=== PATIENT | female | born 1950 | race Caucasian/White ===

== ENCOUNTER → 2020-01-02 | Outpatient (CLI) | payer MEDICARE ==
[~2020-01-02] MED LIST: IOHEXOL 240 MG/ML 50ML VIAL. PO ONE; IOHEXOL 300 MG/ML 100ML VIAL. IV ONE; LEVO25TA55 PO; NIFE30TA2 PO
--- NOTE | 2020-01-02 13:12 | KCIC ---
Examination: CT ABD PELV W/ORAL IV CONTRAST History: Reason: BILATERAL GROIN PAIN, UMBILICAL PAIN, EVALUATE FOR HERNIAS / Spl. Instructions: 67mL Omni 300 / History: Comparison/Correlation: None Findings: Axial images of the abdomen and pelvis were obtained following IV and oral contrast. Sagittal and coronal reformatted images were provided. Visualized lung bases are clear. No hiatal hernia. Upper abdominal ventral hernia at epigastric level is present measuring 1 cm longitudinal by 0.8 cm transverse with small amount of abdominal fat herniation. Liver, spleen, pancreas, and adrenal glands are normal. Right kidney is normal. Left extrarenal pelvis is present. Gallbladder fossa is unremarkable. Surgical clips are present about the cecum. Appendix is not delineated. No extraluminal gas. Moderate quantity of stool in the colon noted. No bowel obstruction. Circumferential wall thickening of the distal rectum is present but may represent contraction or spasm. Urinary bladder is unremarkable. Uterus is unremarkable. Moderate L4-5 disc space narrowing is present with concentric disc bulge. Mild L5-S1 disc space narrowing also is present with mild concentric disc bulge. There are no inguinal hernias. No enlarged abdominal or pelvic lymph nodes. No ascites or pelvic free fluid. Abdominal aortogram appears unremarkable. Impression: Small ventral hernia of the abdominal wall at the epigastric level. Small amount of herniated abdominal fat. Circumferential wall thickening of the distal rectum which may represent contraction or spasm. Clinical evaluation is recommended. PQRS Compliance Statement: One or more of the following individualized dose reduction techniques were utilized for this examination: 1. Automated exposure control 2. Adjustment of the mA and/or kV according to patient size 3. Use of iterative reconstruction technique Electronically signed by: Lane Triana MD (01/02/2020 1:09 PM) [facility]
== END ==
LOC: KCIC CT 10:21
PROVIDERS: ATTEND Surgery
DX: K43.9 Ventral hernia without obstruction or gangrene (principal)
CPT/HCPCS: 74177; 82565; Q9966; Q9967

== ENCOUNTER → 2020-01-25 | Outpatient (CLI) | payer MEDICARE ==
[~2020-01-25] MED LIST changes: +ASCO500C PO; +CALCIUM MAG; +CHOL2400 MC; +CYAN50008 SL; +HYDR-3164 PO; -IOHEXOL 240 MG/ML 50ML VIAL. PO ONE; -IOHEXOL 300 MG/ML 100ML VIAL. IV ONE; +L.AC1CAP6 PO; +LEVO50TA5 PO; +METH500T5 PO; +OMEG1CAP27 PO; +TIMO5SOL10 EACHEYE; +ZINC; +[UNRECOGNIZED DRUG - OTHER]; +[UNRECOGNIZED DRUG - REMARK]; +potassium OTC; +tumeric
== END | disposition home or self-care (01) ==
LOC: LAB 13:47
PROVIDERS: ATTEND Surgery
DX: Z01.818 Encounter for other preprocedural examination (principal); Z11.59 Encounter for screening for other viral diseases; K43.9 Ventral hernia without obstruction or gangrene; Z88.0 Allergy status to penicillin
CPT/HCPCS: U0003-CS

== ENCOUNTER 2020-01-29 05:52 | Day surgery (SDC) | payer MEDICARE ==
[~2020-01-29] VITALS: Ht 158.8 cm; Wt 55.0 kg
[~2020-01-29 05:52] MED LIST changes: -HYDR-3164 PO
[2020-01-29] MEDS ORDERED: PROCHLORPERAZINE 10 MG/2 ML VIAL. IV PRN (07:00)
[2020-01-29] MEDS ORDERED: ONDANSETRON PF 4 MG/2 ML VIAL. IV PRN (07:00)
[2020-01-29] MEDS ORDERED: LIDOCAINE 1% PF 2 ML VIAL. ID PRN (07:00)
[2020-01-29] MEDS ORDERED: fentaNYL PF VIAL 100 MCG/2 ML VIAL IV PRN ×2 (07:00)
[2020-01-29] MEDS ORDERED: HYDROmorphone 2 MG/ML VIAL IV PRN (07:00)
[2020-01-29] MEDS ORDERED: MORPHINE SULFATE 2 MG/ML VIAL. IV PRN (07:00)
[2020-01-29] MEDS ORDERED: IV RINGERS,LACTATED 1000ML 1,000 ML IV SCH (07:00)
[2020-01-29] MEDS ORDERED: PROPOFOL 10 MG/ML (20ML) VIAL. IV ONE (07:11)
[2020-01-29] MEDS ORDERED: LIDOCAINE 2% PF 5 ML VIAL. ONE (07:11)
[2020-01-29] MEDS ORDERED: fentaNYL PF VIAL 100 MCG/2 ML VIAL ONE (07:11)
[2020-01-29] MEDS ORDERED: ROCURONIUM 50 MG/5 ML VIAL. ONE (07:12)
[2020-01-29] MEDS ORDERED: SUCCINYLCHOLINE 200 MG/10 ML VIAL. ONE (07:12)
[2020-01-29] MEDS ORDERED: BUPIVACAINE-EPI 0.5%-1:200000 MPF 30 ML VIAL. ONE (07:34)
[2020-01-29] MEDS ORDERED: ONDANSETRON PF 4 MG/2 ML VIAL. ONE (07:43)
[2020-01-29] MEDS ORDERED: DEXAMETHASONE SOD PHOS 4 MG/ML VIAL ONE (07:44)
[2020-01-29] MEDS ORDERED: DESFLURANE 31 TO 60 MINUTES IH ONE (07:47)
[2020-01-29] MEDS ORDERED: NEOSTIGMINE METHYLSULFATE 5 MG/5 ML SYRINGE. ONE (08:06)
[2020-01-29] MEDS ORDERED: GLYCOPYRROLATE 1 MG/5 ML VIAL. ONE (08:06)
--- NOTE | 2020-01-29 08:59 | PDOC4 ---
Operative Note Operative Note Operative Note: Preoperative Diagnosis: Epigastric hernia Postoperative Diagnosis: Same Procedure: Repair of epigastric hernia with mesh Surgeon: Karl Fishing Line Winding Machine Operator: Soumya WILKERSON Anesthesia: General EBL: 10 mL Specimen: None Drains: None Complications: None Indication: The patient is a 69-year-old female who was referred with an epigastric hernia. She was offered surgical repair. The risks of surgery were discussed which include bleeding, infection, recurrence, pain, anesthetic risk, potential need for additional surgery procedure. She understands and would like to proceed. Description: The patient was taken the operating room and placed supine on the operating table. General anesthesia was performed. The abdomen was prepped with ChloraPrep and draped with sterile towels, sheets, and an Ioban. A small vertical incision was made overlying the epigastric hernia. Cautery dissection was carried down to the fascia. The fascial defect was well defined circumferentially. A preperitoneal plane was developed with blunt dissection. All herniated fatty contents were reduced and a small Ventralex ST mesh was placed in the preperitoneal plane. The mesh was sutured into position with 0 Prolene in a horizontal mattress fashion. The fascial edges were closed over the mesh with 0 Prolene. The deep subcutaneous tissue was closed with 0 Vicryl. The superficial subcutaneous tissue was approximated with 3-0 Vicryl. Skin was closed with 4-0 Monocryl. The incision was infiltrated with half percent Marcaine with epinephrine and Steri-Strips and a sterile dressing were applied. The patient tolerated the procedure well and was sent to the recovery room in stable condition. At the end of the case all counts were correct. CARMEN BAUMAN MD Jan 29, 2020 08:59
--- NOTE | 2020-01-29 09:03 | DISCH ---
DISCHARGE INSTRUCTIONS Condition on Discharge Condition on Discharge: Stable Activity After Discharge Activity Instructions for Disc: Other, see below (no lifting over 20 lbs X 4 weeks) Driving Instructions after Dis: Other, see below (no driving while taking pain meds) Diet after Discharge Diet after Discharge: Regular Wound Incision Care Wound/Incision Care: Other, see below (keep dressing clean and dry X 72 hours, may then remove and shower; no submerging underwater X 14 days) Follow-Up Follow up with: Dr Bauman in office in 2 weeks, call for appt [phone] CARMEN BAUMAN MD Jan 29, 2020 09:03
[2020-01-29] MEDS ORDERED: HYDR-3164 PO (09:09)
[2020-01-29] MEDS ORDERED: HYDROcodone/APAP 5/325MG 1 TAB TABLET PO ONE (09:15)
[2020-01-29 09:44] VITALS: BP 159/88
== END 2020-01-29 10:15 | disposition home or self-care (01) ==
LOC: SURG 05:52
PROVIDERS: ATTEND Surgery
DX: K43.9 Ventral hernia without obstruction or gangrene (principal); Z88.0 Allergy status to penicillin; Z88.2 Allergy status to sulfonamides; Z88.8 Allergy status to other drugs, medicaments and biological substances; Z79.899 Other long term (current) drug therapy
CPT/HCPCS: 49570; A7015; C1713; C1781; J0330; J1100; J1956; J2405; J2704; J2710; J3010; J3490